=== PATIENT | female | born 1935 | race Two or more races ===

== ENCOUNTER 2017-05-10 08:39 | Emergency (ER) | payer OTHER, MEDICAID ==
[~2017-05-10] VITALS: Ht 154.9 cm; Wt 72.6 kg
[2017-05-10] MEDS ORDERED: LABETALOL HCL 5 MG/ML ML 20ML VIAL IV ONE ×2 (09:21→09:30)
[2017-05-10] MEDS ORDERED: NITROGLYCERIN 0.4 MG SL TAB SL ONE ×2 (09:21→09:30)
[2017-05-10 09:24] LABS: Basophils # (auto) 0 uL; Basophils % (auto) 0.5 % (0.0-2.0); Eosinophils # (auto) 0.3 uL; Eosinophils % (auto) 2.5 % (0.0-7.0); Hemoglobin 15.3 g/dL (12.2-16.2); Lymphocytes # (auto) 2.4 uL; Lymphocytes % (auto) 23.6 % (10.0-50.0); Mean Corpuscular Hemoglobin 28.2 pg (28.0-32.0); Mean Corpuscular Hgb Conc. 33.1 g/dL (32.0-36.0); Mean Corpuscular Volume 85.3 fL (80.0-100.0); Monocytes # (auto) 0.7 uL; Monocytes % (auto) 7.1 % (0.0-12.0); Neutrophils # (auto) 6.8 uL; Neutrophils % (auto) 66.3 % (37.0-80.0); Nucleated Red Blood Cells % 0.1 %; Platelet Count (auto) 290 10^3/uL (140-450); Red Cell Distribution Width 14.1 % (11.8-14.3); White Blood Cell 10.2 10^3/uL (4.4-10.8)
[2017-05-10 09:40] LABS: BUN/Creatinine Ratio 25.4; Calcium 9.5 mg/dL (8.5-10.1); Magnesium 2.2 mg/dL (1.6-2.6); Potassium 3.7 mmol/L (3.5-5.1)
[2017-05-10 09:45] LABS: Bilirubin, Total 0.5 mg/dL (0.2-1.0); Total Protein 8.4 g/dL (6.4-8.2)
[2017-05-10] MEDS ORDERED: PROMETHAZINE HCL 25 MG/ML 1ML IV ONE (10:00)
[2017-05-10 11:49] VITALS: BP 164/90
[2017-05-10 13:07] LABS: Urine Bacteria FEW /hpf (None Seen); Urine Blood Negative /uL (Negative); Urine Specific Gravity 1.003 (1.001-1.035); Urine WBC 5 /hpf (0 - 5)
[2017-05-10] MEDS ORDERED: NITROFURANTOIN (MONO) 100 mg CAP PO ONE (13:15)
== END 2017-05-10 13:30 | disposition home or self-care (01) ==
LOC: ER 08:39
DX: I10 Essential (primary) hypertension (principal); N39.0 Urinary tract infection, site not specified
CPT/HCPCS: 36415; 70450; 71045; 80053; 81001; 83735; 84484; 85025; 93005; 96374; 96375; 99285; J2550

== ENCOUNTER 2021-11-16 19:40 | Inpatient (IN) | payer OTHER, MEDICAID ==
[~2021-11-16] VITALS: Ht 160 cm; Wt 87.1 kg
[2021-11-16 23:29] LABS: Basophils # (auto) 0 10 ^3/uL (0-0.2); Basophils % (auto) 0.1 % (0.0-2.0); Eosinophils # (auto) 0 10 ^3/uL (0-0.8); Lymphocytes % (auto) 4.7 % (10.0-50.0)
[2021-11-16 23:30] LABS: Eosinophils % (auto) 0.2 % (0.0-7.0); Hematocrit 42.5 % (36.0-46.0); Hemoglobin 13.1 g/dL (12.2-16.2); Mean Corpuscular Hemoglobin 26.5 pg (28.0-32.0); Mean Corpuscular Hgb Conc. 30.9 g/dL (32.0-36.0); Mean Corpuscular Volume 85.7 fL (80.0-100.0); Monocytes # (auto) 1.4 10 ^3/uL (0-1.3); Monocytes % (auto) 6.9 % (0.0-12.0); Neutrophils % (auto) 88.1 % (37.0-80.0); Red Blood Cells 4.96 10^6/uL (4.0-5.20); Red Cell Distribution Width 13.9 % (11.8-14.3); White Blood Cell 20.4 10^3/uL (4.4-10.8)
[2021-11-16 23:52] LABS: Albumin 3.8 g/dL (3.4-5.0); BUN/Creatinine Ratio 21.4; Calcium 9.2 mg/dL (8.5-10.1); Magnesium 2.2 mg/dL (1.6-2.6); Potassium 3.7 mmol/L (3.5-5.1)
[2021-11-16 23:54] LABS: Bilirubin, Total 0.4 mg/dL (0.2-1.0); Total Protein 7.5 g/dL (6.4-8.2)
[2021-11-17] MEDS ORDERED: cefTRIAXone 1GM/50ML D5W 50 ML IV ONE (00:30)
[2021-11-17 01:28] LABS: INR 0.97 (0.9-1.15); Partial Thromboplastin Time 25.6 sec (24.6-33.4)
[2021-11-17] MEDS: SODIUM CHLORIDE 0.9% 1,000 ML IV SCH ×2 (01:28→12:04)
[2021-11-17 01:58] LABS: Urine Bacteria NONE SEEN /hpf (None Seen); Urine Blood Negative /uL (Negative); Urine Specific Gravity 1.015 (1.001-1.035); Urine WBC <1 /hpf (0 - 5)
[2021-11-17] MEDS: hydrALAZINE HCL 20 MG/ML VL IV PRN ×2 (04:37)
[2021-11-17] MEDS: ONDANSETRON HCL 4 MG/2 ML VIAL IV PRN ×2 (04:42→09:38)
[2021-11-17] MEDS: MORPHINE SULFATE INJ 2 MG/ml SYRG IV PRN ×4 (04:42→23:14)
[2021-11-17] MEDS: cefTRIAXone 1GM/50ML D5W 50 ML IV SCH (07:02)
[2021-11-17 08:00] LABS: Eosinophils # (auto) 0.1 10 ^3/uL (0-0.8); Hemoglobin 12.3 g/dL (12.2-16.2); Lymphocytes # (auto) 2.3 10 ^3/uL (0.4-5.4); Neutrophils % (auto) 76.5 % (37.0-80.0)
[2021-11-17 08:02] LABS: Basophils # (auto) 0 10 ^3/uL (0-0.2); Basophils % (auto) 0.3 % (0.0-2.0); Eosinophils % (auto) 0.8 % (0.0-7.0); Hematocrit 38.5 % (36.0-46.0); Mean Corpuscular Hemoglobin 26.8 pg (28.0-32.0); Mean Corpuscular Hgb Conc. 32.1 g/dL (32.0-36.0); Mean Corpuscular Volume 83.7 fL (80.0-100.0); Monocytes # (auto) 1.6 10 ^3/uL (0-1.3); Monocytes % (auto) 9.4 % (0.0-12.0); Neutrophils # (auto) 13.4 10 ^3/uL (1.6-8.6); Red Cell Distribution Width 13.6 % (11.8-14.3); White Blood Cell 17.5 10^3/uL (4.4-10.8)
[2021-11-17] MEDS: PANTOPRAZOLE 40 MG/10 ML VIAL INJ IV SCH (10:14)
[2021-11-17] MEDS ORDERED: VANCOMYCIN HCL 1000 MG VL ONE ×2 (10:14→12:58)
[2021-11-17] MEDS ORDERED: BUPIVACAINE 0.25% INJ 50ML VIAL ONE (10:15)
[2021-11-17] MEDS ORDERED: TRANEXAMIC ACID 10 ML ONE ×2 (10:17)
[2021-11-17] MEDS ORDERED: KETOROLAC TROMETH 30 MG/ML 1ML VIAL ONE (11:31)
[2021-11-17] MEDS ORDERED: MORPHINE SULF PF 5 MG/10 ML VIAL ONE ×2 (11:34→13:11)
[2021-11-17] MEDS ORDERED: EPINEPHrine HCL 1 MG/1 ML AMP ONE (11:35)
[2021-11-17] MEDS ORDERED: TETRACAINE 1% INJ 2 ML VIAL IJ ONE (11:51)
[2021-11-17] MEDS ORDERED: MIDAZOLAM HCL 2MG/2ML 2ml VIAL (1mg/ml) ONE (13:16)
[2021-11-17] MEDS ORDERED: fentaNYL CITRATE 100 MCG/2 ML VL ONE (13:16)
[2021-11-17] MEDS ORDERED: PROPOFOL 10 MG/ML 20 ML IV ONE (13:43)
[2021-11-17] MEDS ORDERED: PHENYLEPHRINE HCL 10 MG/ML VL ONE (14:27)
[2021-11-17] MEDS ORDERED: DexAMETHasone SOD PHOS 10MG/1ML VIAL INJ IV PRN (16:30)
[2021-11-17] MEDS ORDERED: ONDANSETRON HCL 4 MG/2 ML VIAL IV PRN (16:30)
[2021-11-17] MEDS ORDERED: NALOXONE HCL 0.4 MG/ML VIAL IV PRN (16:30)
[2021-11-17] MEDS ORDERED: HYDROmorphone HCL 2 MG/ML VL/or syr IV PRN (16:30)
[2021-11-17] MEDS ORDERED: NALBUPHINE HCL 10 MG/1ml INJECTION SUBCUT ONE (16:30)
[2021-11-17] MEDS ORDERED: ePHEDrine SULFATE 50 MG/ML AMP ONE (16:58)
[2021-11-17] MEDS ORDERED: OME20GT GT (18:46)
[2021-11-17] MEDS ORDERED: CHOL20007 PO (18:46)
[2021-11-17] MEDS ORDERED: HYDR25TA5 PO (18:46)
[2021-11-17] MEDS ORDERED: ATO40T PO (18:46)
[2021-11-17] MEDS ORDERED: OMEP20TA PO (18:46)
[2021-11-17] MEDS ORDERED: LISI40TA11 PO (18:46)
[2021-11-17] MEDS ORDERED: ASPI-543 PO (18:46)
[2021-11-17] MEDS ORDERED: SODIUM CHLORIDE 0.9% 500 ML IV ONE (20:30)
[2021-11-17] MEDS ORDERED: SODIUM CHLORIDE 0.9% 1,000 ML IV ONE (20:30)
[2021-11-17] MEDS ORDERED: ALBUTEROL SULF 2.5 MG/0.5ML(0.5%) NEB SOLN NEB PRN (20:30)
[2021-11-17 20:39] VITALS: BP 101/51
[2021-11-17] MEDS: ATORVASTATIN 20 MG TAB PO SCH (22:00)
[2021-11-18] MEDS: ACETAMINOPHEN 325 MG TAB PO PRN ×2 (01:21→17:56)
[2021-11-18] MEDS: VANCOMYCIN 1GM/250ML 250 ML IV SCH ×2 (02:00→15:03)
[2021-11-18 03:25] LABS: Urine Bacteria FEW /hpf (None Seen); Urine Blood 2+ /uL (Negative); Urine Hyaline Cast FEW /lpf (0 - 2); Urine Mucus FEW (None Seen); Urine WBC 16 /hpf (0 - 5)
[2021-11-18 05:55] LABS: Basophils # (auto) 0 10 ^3/uL (0-0.2); Basophils % (auto) 0.2 % (0.0-2.0); Eosinophils # (auto) 0.2 10 ^3/uL (0-0.8); Eosinophils % (auto) 1.2 % (0.0-7.0); Hematocrit 32.9 % (36.0-46.0); Hemoglobin 10.6 g/dL (12.2-16.2); Lymphocytes # (auto) 2.3 10 ^3/uL (0.4-5.4); Lymphocytes % (auto) 11.9 % (10.0-50.0); Mean Corpuscular Hemoglobin 27.8 pg (28.0-32.0); Mean Corpuscular Hgb Conc. 32.3 g/dL (32.0-36.0); Mean Corpuscular Volume 86.2 fL (80.0-100.0); Monocytes # (auto) 2.1 10 ^3/uL (0-1.3); Neutrophils # (auto) 14.3 10 ^3/uL (1.6-8.6); Neutrophils % (auto) 75.7 % (37.0-80.0); Red Blood Cells 3.81 10^6/uL (4.0-5.20); Red Cell Distribution Width 13.7 % (11.8-14.3)
[2021-11-18 06:08] LABS: BUN/Creatinine Ratio 18.3; Calcium 8.5 mg/dL (8.5-10.1); Potassium 4.1 mmol/L (3.5-5.1)
[2021-11-18] MEDS: SODIUM CHLORIDE 0.9% 1,000 ML IV SCH (07:18)
[2021-11-18 08:00] VITALS: BP 130/48
[2021-11-18] MEDS: PANTOPRAZOLE 40 MG/10 ML VIAL INJ IV SCH (08:41)
[2021-11-18] MEDS: cefTRIAXone 1GM/50ML D5W 50 ML IV SCH (08:41)
[2021-11-18 09:00] VITALS: BP 142/50
[2021-11-18] MEDS: HYDROcodone-ACET 10/325MG TAB PO PRN ×2 (11:41→17:56)
[2021-11-18 13:00] VITALS: BP 126/51
[2021-11-18 15:58] LABS: Basophils # (auto) 0 10 ^3/uL (0-0.2); Hematocrit 32.1 % (36.0-46.0); Mean Corpuscular Hemoglobin 26.5 pg (28.0-32.0); Mean Corpuscular Volume 85.5 fL (80.0-100.0); Neutrophils # (auto) 13.7 10 ^3/uL (1.6-8.6); Nucleated Red Blood Cells % 0.1 %
[2021-11-18 16:00] LABS: Basophils % (auto) 0.1 % (0.0-2.0); Eosinophils # (auto) 0.2 10 ^3/uL (0-0.8); Eosinophils % (auto) 1.3 % (0.0-7.0); Monocytes # (auto) 2.1 10 ^3/uL (0-1.3); Monocytes % (auto) 11.7 % (0.0-12.0); Neutrophils % (auto) 75.9 % (37.0-80.0); Red Blood Cells 3.76 10^6/uL (4.0-5.20); Red Cell Distribution Width 13.7 % (11.8-14.3)
[2021-11-18 16:18] LABS: Calcium 8.3 mg/dL (8.5-10.1); Potassium 4.2 mmol/L (3.5-5.1)
[2021-11-18 16:54] VITALS: BP 123/50
[2021-11-18] MEDS: ATORVASTATIN 20 MG TAB PO SCH (21:00)
[2021-11-18 22:00] VITALS: BP 114/44
[2021-11-18] MEDS ORDERED: ENOXAPARIN SOD 40 MG/0.4 ML SYRINGE SC SCH (22:00)
[2021-11-19] MEDS: HYDROcodone-ACET 10/325MG TAB PO PRN ×2 (01:53→10:36)
[2021-11-19 05:00] VITALS: BP 142/57
[2021-11-19] MEDS: SODIUM CHLORIDE 0.9% 1,000 ML IV SCH (06:49)
[2021-11-19] MEDS: cefTRIAXone 1GM/50ML D5W 50 ML IV SCH (06:49)
[2021-11-19 08:36] VITALS: BP 127/57
[2021-11-19] MEDS: PANTOPRAZOLE 40 MG/10 ML VIAL INJ IV SCH (11:09)
[2021-11-19 17:00] VITALS: BP 135/52
== END 2021-11-19 18:14 | DRG 522 ==
LOC: ER 19:40 → OVERFLOW 11-17 00:26 → TELE 11-17 14:08 → TELE-CENTR 11-17 17:31
PROVIDERS: ADMIT Nurse Practitioner; ATTEND Internal Medicine
PROC: 0SRS0J9 Replacement of Left Hip Joint, Femoral Surface with Synthetic Substitute, Cemented, Open Approach (ICD-10-PCS; principal; 2021-11-17 13:13)
DX: S72.002A Fracture of unspecified part of neck of left femur, initial encounter for closed fracture (principal); S82.035A Nondisplaced transverse fracture of left patella, initial encounter for closed fracture; N17.9 Acute kidney failure, unspecified; N39.0 Urinary tract infection, site not specified; W01.0XXA Fall on same level from slipping, tripping and stumbling without subsequent striking against object, initial encounter; E78.5 Hyperlipidemia, unspecified; D72.829 Elevated white blood cell count, unspecified; D64.9 Anemia, unspecified; I11.9 Hypertensive heart disease without heart failure; K21.9 Gastro-esophageal reflux disease without esophagitis; Z96.652 Presence of left artificial knee joint; Z20.822 Contact with and (suspected) exposure to COVID-19; Y93.89 Activity, other specified; Y92.89 Other specified places as the place of occurrence of the external cause; Y99.8 Other external cause status
CPT/HCPCS: 36415; 71045; 72170; 73501; 73560; 73590; 76000; 80048; 80053; 81001; 82565; 82962; 83605; 83735; 83880; 84484; 85025; 85610; 85730; 86850; 86900; 86901; 87040; 93005; 93306; 96361; 96365; 96375; 97110; 97530; C9113; G0378; J0171; J0696; J1885; J2250; J2405; J2704; J3490